=== PATIENT | female | born 1985 | race Caucasian/White ===

== ENCOUNTER 2022-09-25 13:28 | Emergency (ER) | payer OTHER, SELFPAY ==
--- NOTE | ~2022-09-25 | CT_ITS ---
Non-contrast CT scan of the Abdomen and Pelvis Clinical indication: Left flank pain Technique: 5 mm axial scans were obtained through the abdomen and pelvis without intravenous or oral contrast. Dose reduction technique was used on this scan by utilizing automated exposure control and iterative reconstruction technique. The dose-length product (DLP) was 191.51 mGy-cm. Findings: Images through the lung bases reveal no abnormalities. There is no evidence of renal or ureteral calculi. The kidneys and the ureters are nondilated. The liver, spleen, pancreas, gallbladder, and adrenals appear normal. There is no aortic aneurysm. There is no evidence of bowel obstruction. Images through the pelvis were performed. There is no evidence of ascites or lymphadenopathy. Urinary bladder unremarkable. No pelvic mass seen. Impression: No significant abnormality seen. Reviewed, dictated and finalized at [facility]. 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
--- NOTE | ~2022-09-25 | CT_ITS ---
EXAMINATION: CT abdomen pelvis w con DATE: 09/25/2022 15:04 INDICATION: severe LT flank pain abdominal pain TECHNIQUE: Computed tomography (CT) of the abdomen and pelvis was performed with 100 mL Omnipaque-350 intravenous contrast. Automated exposure control and iterative reconstruction technique were employe d. The dose-length product was 284.24 mGy-cm. COMPARISON: Noncontrast CT performed on the same date. FINDINGS: Lower thorax: Small hiatal hernia. Liver: Normal. Biliary/Gallbladder: Gallbladder is normal. No bile duct dilation. Pancreas: No mass or duct dilation. Spleen: Normal. Adrenals:No mass. Kidneys: No mass, stone, or hydronephrosis. Subcentimeter left midpole hypodensity, too small to marita acterize but most likely represents a cyst. GI tract: Wall edema involving the gastric antrum. No small or large bowel dilation. Normal appendix. Mesentery/Peritoneum: No ascites, mass, or free air. Retroperitoneum: No mass. Pelvis: Pelvic organs are within normal limits. Soft Tissues: Bilateral borderline pelvic lymphadenopathy, otherwise the soft tissues and body wall u nremarkable. Bones: No acute osseous finding. IMPRESSION: Antral gastritis, otherwise no acute abdominopelvic process detected. Reviewed, dictated and finalized at location K. [facility]
--- NOTE | 2022-09-25 13:31 | ED.ABDPAIN ---
HPI - Abdominal Pain General Chief Complaint: Abdominal Pain Stated Complaint: stomach pain, vomitting Time Seen by Provider: 09/25/22 13:31 Source: patient and RN notes reviewed Mode of arrival: ambulatory Limitations: no limitations History of Present Illness MD elicited complaint: flank pain Pertinent past history: none Onset (ago): hour(s) (7.5) Pain Consistency: constant Location: L flank Severity: severe Quality: stabbing and sharp Radiation: LLQ Migration to: no migration Exacerbating factors: movement Relieving factors: nothing Associated symptoms: nausea and vomiting Related Data Allergies Allergy/AdvReac Type Severity Reaction Status Date / Time No Known Allergies Allergy Verified 09/25/22 13:44 Review of Systems Review of Systems: All systems reviewed & are unremarkable except as noted in HPI and below Constitutional: Constitutional: Denies chills and Denies fever(s) Gastrointestinal: Gastrointestinal: Denies constipation and Denies diarrhea PMFSH Past Medical History Medical History (Updated 09/25/22 @ 15:27 by Davide Kasper MD) Anemia Surgical History Surgical History (Updated 09/25/22 @ 13:52 by Davide Kasper MD) History of bilateral tubal ligation Social History Social History (Updated 09/25/22 @ 13:43 by Davide Kasper MD) Smoking packs per day: 0.5 Smoking cigarettes per day: 10.0 Smoking status: Current every day smoker Tobacco type: cigarettes Course Course Emergency Course: patient given IV Zofran and Toradol for suspected kidney stone. Patient states this was no help. She continues to moan and groan says she has severe pain in her abdomen. She is given morphine 4 mg IV push and Phenergan 25 mg IM. She again complains that I had no relief. I had a discussion with her regarding her results including the nurse in the room for the discussion. I explained to her that her CT scan only shows some antral gastritis. I said that we could discuss possible surgical consultation for transfer to [facility]. [facility] is currently boarding patients in their emergency room and has no beds. Patient is then given Dilaudid 1 mg IVP and medially or rolls over and relaxes following the injection. I reviewed medical records from an outside hospital at [facility] where she was seen in July 2020 for similar complaint. At that point she had a urinary tract infection and some mild dehydration was advised to be admitted but at that time she declined and left AMA. At discharge patient symptoms had completely resolved. She apologized to the nurse for her behavior. She left without difficulty walking without difficulty having no pain. Consultations Consultation #1: Dr. Garcia, general surgeon, [facility] did not feel there is anything surgical at this point. Did recommend a PPI follow-up with primary care for Hemoccult of the stool and H pylori. Date: 09/25/22 Time: 16:25 Vital Signs Vital signs: Vital Signs Oxygen Delivery Room Air 09/25/22 13:30 Temperature 36.4 C L 09/25/22 18:23 Pulse Rate 62 09/25/22 18:23 Respiratory Rate 14 09/25/22 18:23 Blood Pressure 108/62 09/25/22 18:23 Pulse Oximetry 99 09/25/22 18:23 Oxygen Delivery Room Air 09/25/22 18:23 MDM - Abdominal Pain MDM Narrative Medical decision making narrative: I reviewed medical records that were faxed to us from 2019 at [facility] emergency room. She had similar abdominal pain then. At that time she had a full workup including CT scans which showed no evidence of any abnormality. She was offered admission for dehydration and a UTI she declined and took out her IVs and left AMA. Differential Diagnosis Differential diagnosis: Likely abdominal pain, acute appendicitis, calculus of kidney, constipation, diverticulitis, gastroenteritis, pancreatitis and small bowel obstruction Medical Records Attestation: I reviewed the patient's medical records. Medical records narrative:
[2022-09-25 13:33] VITALS: BP 154/89; PULSE 84; RESP 18; TEMP 36.8; O2SAT 98
[2022-09-25] MEDS: ONDANSETRON INJ 4 MG/2 ML VIAL IV PUSH (13:48)
[2022-09-25] MEDS: KETOROLAC 30 MG/ML VIAL (*BKC) IV PUSH (13:48)
--- NOTE | 2022-09-25 13:50 | PC.NURSE ---
assisted with exam
[2022-09-25 13:58] LABS: Basophils Absolute Auto 0.05 K/mm3 (0.00-0.10); Basophils Percent Auto 0.6 % (0.0-1.0); Eosinophils Percent Auto 1.2 % (1.0-6.0); Hematocrit 29.3 % (35.0-49.0); Hemoglobin 8.1 g/dL (12.0-15.0); Immature Granulocyte Absolute 0.07 K/mm3 (0.00-0.00); Immature Granulocyte Percent A 0.9 % (0.0-0.0); Lymphocytes Absolute Auto 2.33 K/mm3 (1.10-4.50); Lymphocytes Percent Auto 28.6 % (18.0-42.0); Mean Corpuscular HGB Conc 27.6 g/dL (32.0-36.0); Mean Corpuscular Hemoglobin 18.2 pg (27.0-31.0); Mean Corpuscular Volume 65.8 fL (78.0-102.0); Mean Platelet Volume 9.3 fl (9.2-11.8); Monocytes Absolute Auto 0.72 K/mm3 (0.10-0.90); Monocytes Percent Auto 8.8 % (2.0-11.0); Neutrophils Absolute Auto 4.9 K/mm3 (1.7-7.2); Neutrophils Percent Auto 59.9 % (50.0-70.0); Platelet Count Result 391 K/mm3 (150-420); Red Blood Count 4.45 M/mm3 (4.20-5.40); White Blood Count 8.2 K/mm3 (4.8-10.8)
--- NOTE | 2022-09-25 14:08 | PC.NURSE ---
PT IS IN CT AT THIS TIME. PT REPORTS SHE NEEDS MORE ZOFRAN AND PAIN MEDICINE SHE WAS LEAVING FOR CT. WILL CONTINUE TO MONITOR. ERP IS AWARE.
[2022-09-25] MEDS: PROMETHAZINE HCL 25 MG/ML AMPUL IM (14:14)
[2022-09-25 14:17] LABS: Alanine Aminotransferase 11 U/L (14-59); Alkaline Phosphatase 60 U/L (46-116); Anion Gap 11 mmol/L (8-16); Aspartate Amino Transferase 12 U/L (15-37); Bilirubin,Total 0.2 mg/dL (0.00-1.00); Blood Urea Nitrogen 8 mg/dL (7-18); Calcium 8.4 mg/dL (8.5-10.1); Carbon Dioxide 25 mmol/L (21-32); Chloride 104 mmol/L (98-108); Estimated CRCL calculation 72 ml/min; Estimated Glomerular Filt Rate > 60; Glucose 108 mg/dL (70-99); Lipase 13 U/L (16-77); Osmolality Calculated 289 mOsm/kg (285-295); Potassium 4.1 mmol/L (3.5-5.1); Sodium 140 mmol/L (136-145); Total Protein 7.2 g/dL (6.4-8.2)
[2022-09-25 14:18] LABS: CRP < 0.5 mg/dL (0.0-0.9)
[2022-09-25 14:25] LABS: Add Urine Microscopic? YES; Appearance Urine Clear (Clear); Bilirubin Urine Negative (Negative); Blood Urine Negative (Negative); Color Urine Yellow (Yellow); Glucose Urine UA Negative (Negative); Ketones Urine 1+ (Negative); Leukocyte Esterase Ur Negative LEU/UL (Negative); Nitrate Urine Negative (Negative); Protein Urine Negative (Negative); Specific Grav Ur 1.025 (1.010-1.020); Urobilinogen Urine 0.2 mg/dL (0.2-1.0)
--- NOTE | 2022-09-25 14:26 | PC.NURSE ---
PT CONTINUES TO THRASH ABOUT ON STRETCHER, MOAN, AND C/O ABD AND FLANK PAIN. PT IS ABLE TO BE STILL WITH PROCEDURES. IV SITE WAS ESTABLISHED WITHOUT INCIDENT, IM MEDICATION ADMINISTERED WITHOUT ISSUE, AND STRAIGHT CATH COMPLETED WITHOUT DIFFICULTY. PT IS AWAITING RESULTS, REQUESTING MORE PAIN MEDICATION. ADDITIONAL NAUSEA MEDICATION HAS BEEN ADMINISTERED. NO NEW PAIN MEDICATION ORDERS OF YET. WILL CONTINUE TO MONITOR.
[2022-09-25 14:29] LABS: Bacteria Urine Trace /hpf; Mucus Urine Few /lpf; RBC Urine None seen /hpf (0-2); Squamous Epithelial Cell Urine None seen /hpf (Few); WBC Urine None seen /hpf (0-3)
[2022-09-25 14:31] LABS: Lactic Acid Reflex 1.2 mmol/L (0.4-2.0)
[2022-09-25 14:38] LABS: Amphetamine Screen Urine Negative (Negative); Barbiturate Screen Urine Negative (Negative); Benzodiazepines Screen Urine Negative (Negative); Cannabinoid Screen Urine Positive (Negative); Cocaine Screen Urine Negative (Negative); Methadone Screen Urine Negative (Negative); Opiate Screen Urine Negative (Negative); Phencyclidine Screen Urine Negative (Negative)
[2022-09-25 14:42] LABS: Ethanol < 3 mg/dL (0-6)
[2022-09-25] MEDS: MORPHINE SULFATE (*CRX) 4 MG/ML INJ IV PUSH (14:46)
--- NOTE | 2022-09-25 15:00 | PC.NURSE ---
PT SIGNS RELEASE TO OBTAIN RECORDS FROM [facility], SPOKE WITH DANK IN MEDICAL RECORDS AND RELEASE WAS FAXED TO [phone]. PT HAS BEEN TO CT A SECOND TIME, AND IS NOW RETURNING. PT REPORTS NOTHING IS HELPING FOR HER PAIN. PT WAS AMBULATORY OUT IN THE [place] PRIOR TO CT REQUESTING A HEATING PAD. MORE WARM BLANKETS WERE PROVIDED. PT DENIES ANY DRUG OR ETOH ABUSE. PT WAS AWARE OF ANEMIA, STATES IT IS CHRONIC. PT RETURNS TO ROOM MOANING, CRYING, SCREAMING, THRASHING ABOUT. ERP IS AWARE. WILL CONTINUE TO MONITOR.
--- NOTE | 2022-09-25 15:23 | PC.NURSE ---
ANOTHER CALL PLACED TO [facility], THE FAX KEEPS COMING BACK WITH 'NO ANSWER'. TO PLACE RELEASE IN THE MAIL, AND THEY ARE GOING TO FAX OVER THE PATIENTS RECORDS. PER MEDICAL RECORDS, PT LAST VISIT THERE WAS A COUPLE MONTHS BACK. PT IS NOW UP TO ER AND RN DESK WANTING MORE PAIN MEDICATION. PT REDIRECTED TO ROOM AND ADVISED ON STATUS. WILL CONTINUE TO MONITOR.
[2022-09-25] MEDS: HYDROmorphone HCL INJ (*CRX) 2 MG/ML VIAL 1 MG IV PUSH (15:36)
--- NOTE | 2022-09-25 15:41 | PC.NURSE ---
ERP AND RN AT BEDSIDE TO REVIEW RESULTS AND PLAN OF CARE. PT CONTINUES TO THRASH ABOUT, WANTING PAIN MEDICATION. ERP HAS OFFERED TO ATTEMPT TRANSFER TO [facility] FOR SURGICAL CONSULT. PT IS AGREEABLE AT THIS TIME, CAN I GET MORE PAIN MEDICATION NOW? CALL PLACED TO HAYES [facility] SHIPPER AT [facility] AND MORE PAIN MEDICATION ADMINISTERED. PT THEN ROLLS OVER ON STRETCHER AND CLOSES HER EYES UPON COMPLETION OF MEDICATION ADMINISTRATION. RECORDS HAVE BEEN RECEIVED FROM [facility] AT THIS TIME. WILL CONTINUE TO MONITOR.
[2022-09-25 16:24] VITALS: BP 119/70; PULSE 55; RESP 16; O2SAT 98
[2022-09-25] MEDS: PANTOPRAZOLE SODIUM IV 40 MG VIAL IV PUSH (16:29)
--- NOTE | 2022-09-25 16:31 | PC.NURSE ---
PT HAS BEEN UPDATED ON INSTRUCTIONS, DC STATUS. PT IS CALLING HER SISTER FOR TRANSPORT, REPORTS 1 1/2 HOURS AWAY. PT IS AWAKEN TO GIVE RESULTS AND IS NOT MOANING AND SCREAMING ABOUT PAIN. NO FURTHER ORDERS AT THIS TIME.
--- NOTE | 2022-09-25 17:11 | PC.NURSE ---
PT UP TO RR WITHOUT DIFFICULTY, SHE HAS BEEN NOTED TO BE DRINKING OUT OF THE SINK IN THE RR AND EXAM ROOM. PT IS IN RR MOANING REPORTING SHE NEEDS SOMETHING FOR PAIN. PT CONTINUES TO AWAIT RIDE HOME AT THIS TIME. NO FURTHER ORDERED. I CAN'T DO IT, I DON'T FEEL GOOD. PT IS YELLING IN RR, WHEN ASKED IF SHE NEEDS HELP, SHE DECLINES ANY ASSISTANCE IN RR. WILL CONTINUE TO MONITOR.
--- NOTE | 2022-09-25 17:46 | PC.NURSE ---
PT IS DRESSED AND SLEEPING ON STRETCHER AWAITING TRANSPORT HOME. WILL CONTINUE TO MONITOR.
--- NOTE | 2022-09-25 18:20 | PC.NURSE ---
pt was resting upon dc instructions. awakes, apologizes for behavior of the day and states she is feeling better. pt reports she does have a GI dr in her home town and will follow up with him. pt is in this area due to work, however sister is to return pt home tonight. nad noted. sister in en route to transport home.
[2022-09-25 18:23] VITALS: BP 108/62; PULSE 62; RESP 14; TEMP 36.4; O2SAT 99
== END 2022-09-25 19:06 | disposition home or self-care (01) ==
PROVIDERS: Emergency Provider Emergency Medicine
DX: K29.70 Gastritis, unspecified, without bleeding (principal); F17.210 Nicotine dependence, cigarettes, uncomplicated
CPT/HCPCS: 36415; 74176; 74177; 80053; 80307; 81001; 83605; 83690; 85025; 86140; 96372; 96374; 96375; 99284; C9113; J1170; J1885; J2270; J2405; J2550; Q9967

== ENCOUNTER 2025-07-07 01:08 | Emergency (ER) | payer OTHER, SELFPAY ==
--- NOTE | ~2025-07-07 | XR_ITS ---
EXAMINATION: XR ankle RT min 3V, 07/07/2025 2:40 CDT HISTORY: Wound COMPARISON: No comparisons available. Findings: No acute fracture or malalignment. No significant degenerative changes. Soft tissues unremarkable. Impression: No acute fracture or malalignment. Reviewed, dictated and finalized at location P. Impression: No acute fracture or malalignment.
[2025-07-07 01:26] VITALS: BP 138/69; PULSE 95; RESP 20; TEMP 37.2; O2SAT 100
[2025-07-07] MEDS: TETANUS,DIPHTHERIA,AC PERTUSSIS ADULT (0.5 ML) BOOSTRIX IM (02:44)
--- NOTE | 2025-07-07 02:47 | ED_ITS ---
HPI - General Adult General Chief complaint: Extremity Injury, Lower Stated complaint: cut on right foot Time Seen by Provider: 07/07/25 02:27 History of Present Illness HPI narrative: Patient 39-year-old female who presents emergency department with chief complaint of right ankle pain patient reports that 3 days ago she was climbing through a window and cut the back of her ankle the patient was seen at [facility] but refused to have it repaired reports he is not sure of her last tetanus shot patient reports that he has become more painful and that there has been some drainage out of the wound Related Data Allergies Allergy/AdvReac Type Severity Reaction Status Date / Time aspirin Allergy Intermediate Hives Verified 07/07/25 01:09 cephalexin (From Keflex) Allergy Intermediate Hives Verified 07/07/25 01:09 Review of Systems Review of Systems: A 10 system review of systems was completed on the patient and is negative except for what is stated in the HPI. Nursing and ancillary documentation was reviewed. PMFSH Past Medical History Medical History Anemia Surgical History Surgical History History of bilateral tubal ligation Social History Social History Smoking packs per day: 0.5 Smoking cigarettes per day: 10.0 Smoking status: Current every day smoker Tobacco type: cigarettes Exam Narrative: GENERAL: Well-appearing, well-nourished, and in no acute distress. HEAD: Normocephalic, atraumatic. EYES: PERRLA and EOMI. ENT: Nares clear, no rhinorrhea or epistaxis. Mucous membranes moist. NECK: Supple. CHEST: Clear to auscultation. No respiratory distress. HEART: Regular rate and rhythm. No murmur heard. Normal peripheral pulses. ABDOMEN: Soft, nontender, nondistended, normal active bowel sounds. EXTREMITIES: Normal range of motion. No edema. SKIN: Warm, dry, no rash. There is a avulsion to the tissue of the back of the ankle Achilles tendon is intact on Powell test NEURO: No focal deficits. Alert and oriented x3. PSYCH: Normal mood and affect. Course Vital Signs Vital signs: Vital Signs Temperature 37.2 C 07/07/25 01:26 Pulse Rate 95 07/07/25 01:26 Respiratory Rate 20 07/07/25 01:26 Blood Pressure 138/69 07/07/25 01:26 Pulse Oximetry 100 07/07/25 01:26 Oxygen Delivery Room Air 07/07/25 01:26 Temperature 37.2 C 07/07/25 01:26 Pulse Rate 95 07/07/25 01:26 Respiratory Rate 20 07/07/25 01:26 Blood Pressure 138/69 07/07/25 01:26 Pulse Oximetry 100 07/07/25 01:26 Oxygen Delivery Room Air 07/07/25 01:26 Medical Decision Making Vital Signs Vital Signs: Vital Signs Temperature 37.2 C 07/07/25 01:26 Pulse Rate 95 07/07/25 01:26 Respiratory Rate 20 07/07/25 01:26 Blood Pressure 138/69 07/07/25 01:26 Pulse Oximetry 100 07/07/25 01:26 Oxygen Delivery Room Air 07/07/25 01:26 Temperature 37.2 C 07/07/25 01:26 Pulse Rate 95 07/07/25 01:26 Respiratory Rate 20 07/07/25 01:26 Blood Pressure 138/69 07/07/25 01:26 Pulse Oximetry 100 07/07/25 01:26 Oxygen Delivery Room Air 07/07/25 01:26 Discharge Plan Discharge Clinical Impression: Cellulitis Laceration of ankle with complication Qualifiers: Encounter type: initial encounter Laterality: right Qualified Code(s): S91.011A - Laceration without foreign body, right ankle, initial encounter Patient Disposition: Home Condition: Stable Instructions: Antibiotic Form, Cellulitis (ED), Acute Wounds (DC) Additional Instructions: Due to the age of the wound and that the wound is showing signs of infection the wound was not able to be repaired. Your started on antibiotics please keep the area clean and change the dressing twice daily please return to the emergency department if your symptoms worsen Patient Language: Hungarian Prescriptions: New sulfamethoxazole-trimethoprim [Bactrim DS] 800-160 mg tablet 1 tablet PO Q12H 7 Days Qty: 14 0RF No Action omeprazole 40 mg capsule,delayed release(DR/EC) 40 mg PO DAILY Qty: 14 0RF Follow-up/Referrals: PHYSICIAN,STABILIZING MACHINE OPERATOR [Primary Care Provider, Internal Medicine] Sanket Campbell MD [Physician, Family Practice] Time of Disposition: 03:03
[2025-07-07] MEDS: ACETAMINOPHEN 500 MG TABLET 1000 MG PO (02:51)
[2025-07-07 02:55] VITALS: PULSE 94; RESP 14; O2SAT 100
[2025-07-07 03:00] VITALS: PULSE 94; RESP 12; O2SAT 100
[2025-07-07 03:15] VITALS: PULSE 95; RESP 16; O2SAT 99
[2025-07-07 03:30] VITALS: PULSE 84; RESP 12; O2SAT 100
[2025-07-07 03:56] VITALS: BP 130/99; PULSE 84; RESP 18; O2SAT 96
== END 2025-07-07 03:59 | disposition home or self-care (01) ==
PROVIDERS: Emergency Provider Emergency Medicine
DX: S91.011A Laceration without foreign body, right ankle, initial encounter (principal); L03.115 Cellulitis of right lower limb; W26.8XXA Contact with other sharp object(s), not elsewhere classified, initial encounter; Z23 Encounter for immunization
CPT/HCPCS: 73610; 90471; 90715; 99283; A9270